=== PATIENT | female | born 1955 | race Caucasian/White ===

== ENCOUNTER 2024-11-20 11:19 | Day surgery (SDC) | payer MEDICARE, MEDICAID ==
[~2024-11-20] VITALS: Ht 165.1 cm; Wt 83.9 kg
[~2024-11-20 11:19] MED LIST: ATOM80CA PO; ATOR40TA52 PO; BUPR150T8 PO; CYA100I PO; DIVA-93 PO; FAMO20TA10 PO; HYDR25TA4 PO; LISD70CA PO; MAGN400T40 PO; MELO15TA29 PO; METH100035 PO; METO-6 PO; MULT-1018 PO; NAPR-957 PO; OXYB5SOL PO; PANT40TA2 PO; POTA-36 PO; RIV15T PO; SERT100T PO; VARE1TAB11 PO
[2024-11-20] MEDS ORDERED: ceFAZolin 2 GM/D5W50ml 50 ML IV ONE (11:37)
[2024-11-20] MEDS ORDERED: LIDOCAINE 1% INJ PF 5ML AMP ONE (12:36)
[2024-11-20] MEDS ORDERED: ONDANSETRON HCL 4 MG/2 ML VIAL ONE (12:36)
[2024-11-20] MEDS ORDERED: KETOROLAC TROMETH 30 MG/ML 1ML VIAL ONE (12:36)
[2024-11-20] MEDS ORDERED: PROPOFOL 10 MG/ML 20 ML IV ONE ×2 (12:37→13:08)
[2024-11-20] MEDS ORDERED: GLYCOPYRROLATE 0.2 MG/ML 1ML VIAL ONE (12:37)
[2024-11-20] MEDS ORDERED: KETAMINE 50mg/ML 1ml syringe ONE (12:39)
[2024-11-20] MEDS: BUPIVACAINE 0.5% MPF INJ 30ML SDV IJ ONE (13:04)
[2024-11-20 13:24] VITALS: PULSE 70; RESP 20; O2SAT 100
--- NOTE | 2024-11-20 13:30 | DVHOP2 ---
Operative Report - 2 Report Details Date: 11/20/24 Preop Diagnosis: 1. Right foot hammer toe 2-5 2. Right foot metarsalgia 3. Left foot hammer toe 2-5 4. Left foot metatarsalgia 5. Bilateral foot pain Postop Diagnosis: Bilateral hammertoes Surgeon: Maria Del Carmen Mondragon MD Anesthesiologist: See anesthesia Anesthesia: Mac Implant: 5 4 K-wire x6 Consent: The patient was informed of the risks and benefits of the procedure. These include but are not limited to complications of anesthesia, postoperative infection, incomplete relief of symptoms, recurrence of symptoms, damage to blood vessels, nerves and tendons, deep venous thrombosis, pulmonary embolism and possible need for repeat surgery in the future. Complications: None Estimated Blood Loss: Minimal Fluids: See anesthesia Findings: Consistent with diagnosis Indications for Surgery: Worsening bilateral foot pain Name of Procedure Performed 1. Right foot 2nd hammer toe repair (16255) 2. Right foot 2nd flexor tenototmy (17207) 3. RIght foot 3rd hammer toe repair(05722) 4. Right foot 3rd flexor tenotomy(16017) 5. Right foot 4th hammer toe repair(75808) 6. Right foot 4th flexor tenototmy(46552) 7. Right foot 5th hammer toe repair(04807) 8. RIght foot 5th flexor tenotomy(94885) 9. Left foot 2nd hammer toe repair (26129) 10. Left foot 2nd flexor tenototmy (09893) 11. Left foot 3rd hammer toe repair(27603) 12. Left foot 3rd flexor tenotomy(13332) 13. Left foot 4th hammer toe repair(79546) 14. Left foot 4th flexor tenototmy(88338) 15. Left foot 5th hammer toe repair(45918) 16. Left foot 5th flexor tenotomy(77509) 17. Left foot vijay osteotomy 2nd and 3rd (62255) x 2 18. Right foot vijay osteotomy 2nd and 3rd (82058) x 2 Procedure Details Procedure Details: PRE-PROCEDURE INFORMATION: In the pre-op holding area, the extremity to be operated on was clearly marked and the patient verified correct laterality of the marking. The patient was transferred to the OR table and placed in a supine position. A timeout was performed in which identification of the correct patient, procedure, location, and materials was done. The bilateral foot and leg were prepped and draped in normal sterile fashion. DESCRIPTION OF PROCEDURE: Attention was directed to the right 2nd toe where hammertoes located. A small stab incision was made medial to the proximal ph alanx. Using the MIS bur, an osteotomy was made across the proximal phalanx. This allowed for adequate correction of the hammertoe deformity. It was noted clinically and fluoroscopy topically that the contracture was no longer there. A 5 4 K-wire was then driven to the base of the proximal phalanx. Using a 18 gauge needle, the toe was extended and a sweeping motion was made on the FDL. It was noted that the contracture of the digit was then relieved after the flexor tendon was released. Attention was directed to the right 3rd toe where hammertoes located. A small stab incision was made medial to the proximal phalanx. Using the MIS bur, an osteotomy was made across the proximal phalanx. This allowed for adequate correction of the hammertoe deformity. It was noted clinically and fluoroscopy topically that the contracture was no longer there. A 5 4 K-wire was then driven to the base of the proximal phalanx. Using a 18 gauge needle, the toe was extended and a sweeping motion was made on the FDL. It was noted that the contracture of the digit was then relieved after the flexor tendon was released. Attention was directed to the right 4th toe where hammertoes located. A small stab incision was made medial to the proximal phalanx. Using the MIS bur, an osteotomy was made across the proximal phalanx. This allowed for adequate correction of the hammertoe deformity. It was noted clinically and fluoroscopy topically that the contracture was no longer there. A 5 4 K-wire was then driven to the base of the proximal phalanx. Using a 18 gauge needle, the toe was extended and a sweeping motion was made on the FDL. It was noted that the contracture of the digit was then relieved after the flexor tendon was released. Attention was directed to the right 5th toe where hammertoes located. A small stab incision was made medial to the proximal phalanx. Using the MIS bur, an osteotomy was made across the proximal phalanx. This allowed for adequate correction of the hammertoe deformity. It was noted clinically and fluoroscopy topically that the contracture was no longer there. A 5 4 K-wire was then driven to the base of the proximal phalanx. Using a 18 gauge needle, the toe was extended and a sweeping motion was made on the FDL. It was noted that the contracture of the digit was then relieved after the flexor tendon was released. Attention was directed to the left 2nd toe where hammertoes located. A small stab incision was made medial to the proximal phalanx. Using the MIS bur, an osteotomy was made across the proximal phalanx. This allowed for adequate correction of the hammertoe deformity. It was noted clinically and fluoroscopy topically that the contracture was no longer there. A 5 4 K-wire was then driven to the base of the proximal phalanx. Using a 18 gauge needle, the toe was extended and a sweeping motion was made on the FDL. It was noted that the contracture of the digit was then relieved after the flexor tendon was released. Attention was directed to the left 3rd toe where hammertoes located. A small stab incision was made medial to the proximal phalanx. Using the MIS bur, an osteotomy was made across the proximal phalanx. This allowed for adequate correction of the hammertoe deformity. It was noted clinically and fluoroscopy topically that the contracture was no longer there. A 5 4 K-wire was then driven to the base of the proximal phalanx. Using a 18 gauge needle, the toe was extended and a sweeping motion was made on the FDL. It was noted that the contracture of the digit was then relieved after the flexor tendon was released. Attention was directed to the left 4th toe where hammertoes located. A small stab incision was made medial to the proximal phalanx. Using the MIS bur, an osteotomy was made across the proximal phalanx. This allowed for adequate correction of the hammertoe deformity. It was noted clinically and fluoroscopy topically that the contracture was no longer there. A 5 4 K-wire was then driven to the base of the proximal phalanx. Using a 18 gauge needle, the toe was extended and a sweeping motion was made on the FDL. It was noted that the contracture of the digit was then relieved after the flexor tendon was released. Attention was directed to the left 5th toe where hammertoes located. A small s tab incision was made medial to the proximal phalanx. Using the MIS bur, an osteotomy was made across the proximal phalanx. This allowed for adequate correction of the hammertoe deformity. It was noted clinically and fluoroscopy topically that the contracture was no longer there. A 5 4 K-wire was then driven to the base of the proximal phalanx. Using a 18 gauge needle, the toe was extended and a sweeping motion was made on the FDL. It was noted that the contracture of the digit was then relieved after the flexor tendon was released. Attention was directed to the right 2nd metatarsal head where a stab incision was made. The incision was deepened through blunt and sharp dissection. Care was taken to avoid damage to neurovascular structures throughout dissection. Incision was carried to the level of the 2nd metatarsal head or on fluoroscopy as well as preoperative x-rays, it was noted there was significant plantar flexion of the metatarsal head. Using an MIS bur, the an osteotomy was performed across the neck of the metatarsal head. The metatarsal head was then able to float. It was noted off intraoperative fluoroscopy, there was significant reduction deformity. Attention was directed to the right 3rd metatarsal head where a stab incision was made. The incision was deepened through blunt and sharp dissection. Care was taken to avoid damage to neurovascular structures throughout dissection. Incision was carried to the level of the 3rd metatarsal head or on fluoroscopy as well as preoperative x-rays, it was noted there was significant plantar flexion of the metatarsal head. Using an MIS bur, the an osteotomy was performe d across the neck of the metatarsal head. The metatarsal head was then able to float. It was noted off intraoperative fluoroscopy, there was significant reduction deformity. Attention was directed to the left 2nd metatarsal head where a stab incision was made. The incision was deepened through blunt and sharp dissection. Care was taken to avoid damage to neurovascular structures throughout dissection. Incision was carried to the level of the 2nd metatarsal head or on fluoroscopy as well as preoperative x-rays, it was noted there was significant plantar flexion of the metatarsal head. Using an MIS bur, the an osteotomy was per formed across the neck of the metatarsal head. The metatarsal head was then able to float. It was noted off intraoperative fluoroscopy, there was significant reduction deformity. Attention was directed to the left 3rd metatarsal head where a stab incision was made. The incision was deepened through blunt and sharp dissection. Care was taken to avoid damage to neurovascular structures throughout dissection. Incision was carried to the level of the 3rd metatarsal head or on fluoroscopy as well as preoperative x-rays, it was noted there was significant plantar flexion of the metatarsal head. Using an MIS bur, the an osteotomy was performed across the neck of the metatarsal head. The metatarsal head was then able to float. It was noted off intraoperative fluoroscopy, there was significant reduction deformity. All surgical wounds were irrigated copiously with saline and closed in layers with the aforementioned suture material. A dry sterile dressing was placed on the surgical extremity. The patient was placed in a postop shoe POSTOPERATIVE INFORMATION: The patient tolerated the above noted procedure and anesthesia well and was transferred to the PACU with vital signs stable, and vascular status intact with capillary refill intact to all digits. Postoperative instructions reviewed in detail with the patient with written instructions provided. Patient will return to clinic in approximately 10-14 days for first postoperative visit. Patient has the number of the clinic and was instructed to call prior to that time should any problems, questions, or concerns arise. Disposition Home MARIA DEL CARMEN MONDRAGON DPM Nov 20, 2024 13:30
[2024-11-20] MEDS ORDERED: hydrALAZINE HCL 20 MG/ML VL IV PRN (13:45)
[2024-11-20] MEDS ORDERED: ONDANSETRON HCL 4 MG/2 ML VIAL IV PRN (13:45)
[2024-11-20] MEDS ORDERED: NALOXONE HCL 0.4 MG/ML VIAL IV PRN (13:45)
[2024-11-20] MEDS ORDERED: HYDROmorphone HCL 2 MG/ML VL/or syr IV PRN (13:45)
[2024-11-20] MEDS ORDERED: fentaNYL CITRATE 100 MCG/2 ML VL IV PRN (13:45)
[2024-11-20] MEDS ORDERED: FLUMAZENIL 0.1 MG/ML INJ 10ML MDV IV PRN (13:45)
[2024-11-20] MEDS: hydrALAZINE HCL 20 MG/ML VL ONE (13:48)
[2024-11-20] MEDS: HYDROmorphone HCL 2 MG/ML VL/or syr ONE (14:00)
[2024-11-20 14:35] VITALS: BP 154/65; PULSE 68; RESP 16; O2SAT 100
== END 2024-11-20 14:24 | disposition home or self-care (01) ==
LOC: SUR 11:19
PROVIDERS: ATTEND Podiatrist
DX: M20.41 Other hammer toe(s) (acquired), right foot (principal); M20.42 Other hammer toe(s) (acquired), left foot; M77.41 Metatarsalgia, right foot; M77.42 Metatarsalgia, left foot; I10 Essential (primary) hypertension; F32.A Depression, unspecified; G89.29 Other chronic pain; E66.9 Obesity, unspecified; F17.210 Nicotine dependence, cigarettes, uncomplicated; F41.9 Anxiety disorder, unspecified; Z90.49 Acquired absence of other specified parts of digestive tract; Z90.89 Acquired absence of other organs; Z98.890 Other specified postprocedural states; Z88.2 Allergy status to sulfonamides; Z88.1 Allergy status to other antibiotic agents; Z88.8 Allergy status to other drugs, medicaments and biological substances; Z91.040 Latex allergy status; Z79.899 Other long term (current) drug therapy
CPT/HCPCS: 28285; 28308; C1713; J0360; J0690; J1100; J1171; J1885; J2405; J2704; J3490